=== PATIENT | female | born 1960 ===

== ENCOUNTER 2025-01-19 12:49 | Emergency (ER) | payer BC, SELFPAY ==
[2025-01-19 12:51] VITALS: BP 151/93
--- NOTE | 2025-01-19 13:49 | ED.GENMED ---
History of Present Illness
General
Chief Complaint: Musculo-Skeletal Complaint
Source: patient
Exam Limitations: none
Time Seen by Provider: 01/19/25 13:22
History of Present Illness
History of Present Illness:
64yo female presenting for evaluation of a right toe injury that occurred a few hours ago. Patient accidentally dropped a shelf on her right 2nd toe. She is presenting with pain and bruising to the digit. No paresthesias. She has been able to
bear weight.
Past History
Past History
ED Past Medical History: None
ED Past Surgical History: None
Phy Exam
General Physical Exam
General Presentation: well appearing and no apparent distress
General Skin: warm and dry
General Habitus: normal
General Mental: alert
ENT Exam
ENT Exam: normocephalic
Pulmonary Exam
Pulmonary Exam: no respiratory distress
Neurological Exam
Neurological Exam: alert
Musculoskeletal Exam
Musculoskeletal Exam: other (Bruising and tenderness to R 2nd proximal toe. No open wounds. No deformity. 2+ DP pulse and sensation intact. )
Skin Exam
Skin Exam: warm/dry
Psychiatric Exam
Psychiatric Exam: normal mood/affect
Course
Orders/Labs/Results
Orders:
Orders
01/19/25 12:53
Toes 2 Views, Right [CR Toe(s) Min 2 Vw Right] Urgent
Comment:
Reason For Exam: pain/swelling/injury
Indicate Which Toe:: Second
01/19/25 14:07
Lopez Tape Right-Treatment ONCE
Cast Shoe Right-Treatment ONCE
Vital Signs
Initial and Last Documented VS:
Initial Vital Signs
Temp Pulse Resp BP Pulse Ox
97.8 F 69 19 151/93 98
01/19/25 12:51 01/19/25 12:51 01/19/25 12:51 01/19/25 12:51 01/19/25 12:51
Last Documented Vital Signs
Temp Pulse Resp BP Pulse Ox
97.8 F 69 19 151/93 98
01/19/25 12:51 01/19/25 12:51 01/19/25 12:51 01/19/25 12:51 01/19/25 12:51
MDM/Problems Addressed
Differential Diagnosis Includes:
64yoF here with a R 2nd toe injury. Bruising and tenderness on exam without deformity. RLE is neurovascularly intact. Differential diagnosis includes: fracture vs. contusion
X-rays obtained which shows a nondisplaced proximal phalanx fx per my interpretation. Digit lopez taped and cast shoe provided. Supportive care discussed. Patient discharged in stable condition.
*Critical Care Note
Total Time (30-74mins, 75-104mins- exclusive of procedures): Not Applicable
ED Attending Note
-
Portions of this chart may have been created with voice recognition software.� Occasional wrong word or��sound alike� substitutions may have occurred due to the inherent limitations of voice recognition software.
Discharge Plan
Departure
Patient Disposition: Home (Routine Discharge)
Date of Disposition: 01/19/25
Time of Disposition: 14:37
Patient with high blood pressure during this ER visit?: Yes
Discharge Problem:
Closed fracture of proximal phalanx of lesser toe of right foot
Instructions: Toe Fracture ED
Referrals:
UNKNOWN - PT DOES,NOT KNOW [Unknown Provider]
Delia Velasquez DPM [[employer] [facility], Podiatry]
Activity Restrictions/Additional Instructions:
Lopez tape toe for immobilization and use cast shoe as needed. Apply ice to affected area.
Follow-up with your family doctor and/or podiatry as needed.
Interventions
Interventions:
*Risk Screen - Suicide Last Done: 01/19/25 12:51
*General Assessment Last Done: 01/19/25 13:15
*Neglect/Abuse Screening Last Done: 01/19/25 12:51
*ED COVID-19 Vaccine History Last Done: 01/19/25 13:15
ED-Musculoskeletal Assessment Last Done: 01/19/25 13:15
Discharge Date and Time
Print Language: ICELANDIC
== END 2025-01-19 14:53 | disposition home or self-care (01) ==
LOC: EMR 12:49
PROVIDERS: EMERGENCY PHYSICIAN Emergency Medicine; FAMILY PHYSICIAN Internal Medicine
DX: S92.514A Nondisplaced fracture of proximal phalanx of right lesser toe(s), initial encounter for closed fracture (principal); S90.121A Contusion of right lesser toe(s) without damage to nail, initial encounter; W20.8XXA Other cause of strike by thrown, projected or falling object, initial encounter; Z88.0 Allergy status to penicillin; Z88.2 Allergy status to sulfonamides
CPT/HCPCS: 99283; 73660

== ENCOUNTER → 2025-05-07 10:01 | Outpatient (REF) | payer BC, SELFPAY | LOC: HWRAD 10:01 | PROVIDERS: ATTENDING PHYSICIAN Student in an Organized Health Care Education/Training Program; FAMILY PHYSICIAN Internal Medicine | DX: Z13.820 Encounter for screening for osteoporosis (principal); Z51.81 Encounter for therapeutic drug level monitoring | CPT/HCPCS: 77080; 77081 ==